=== PATIENT | female | born 1960 | race Caucasian/White ===

== ENCOUNTER 2022-04-24 07:31 | Outpatient (CLI) | payer BC, SELFPAY ==
--- OUTSIDE RECORDS SUMMARY | 2022-04-24 07:34 | XMS_ITS | Clinical Summary ---
:1960 Author Organization [facility] [place] [address] Care Team Providers Name Role Phone Ryann Golden Primary Care Provider Unavailable Allergies No known active allergies Medications Medication Sig Dispensed Refills Start Date End Date Status NAPROXEN SODIUM (ALEVE Take 2 Tabs by 0 Active ORAL) mouth. multivitamin (MVI) Take 1 tablet by 0 Active tablet mouth once daily. predniSONE (DELTASONE) One po QAM as 10 tablet 0 01/28/2020 Active 50 mg tab needed symptoms. tabletIndications: Herpes zoster without complication Active Problems Not on file Encounters Date Type Specialty Care Team Description 03/16/2022 Transcribe Orders Brisa Mcclelland MD from Last 3 Months Social History Tobacco Use Types Packs/Day Years Used Date Never Smoker Smokeless Tobacco: Never Used Sex Assigned at Date Recorded Not on file Obstetrics History Last Filed Vital Signs Vital Sign Reading Time Taken Comments Blood Pressure 116/84 01/28/2020 2:29 PM CDT Pulse 74 01/28/2020 2:29 PM CDT Temperature 36.5 ??C (97.7 ??F) 01/28/2020 2:29 PM CDT Respiratory Rate 16 01/28/2020 2:29 PM CDT Oxygen Saturation 98% 01/28/2020 2:29 PM CDT Inhaled Oxygen Concentration - - Weight 76.1 kg (167 lb 11.2 oz) 01/28/2020 2:29 PM CDT Height - - Body Mass Index - - Plan of Treatment Health Maintenance Due Date Last Done Comments COVID-19 vaccine series (#1) 04/11/1962 Tdap 1972 Depression screening for age 12+ 1973 BMI (ht and wt on same day) for age 18+ 10/10/1979 Hepatitis C screening for age 18-79 10/10/1979 Tetanus booster 1981 Colonoscopy through age 75 2006 Lipids for age 45-75 2006 Mammogram for age 45-75 2006 Zoster (shingles) series for age 50+ (1 of 10/10/2011 2) Pap test for age 21-65 12/06/2021 12/06/2018, 12/06/2018 Influenza for age 50-64 03/30/2022 Results Not on filefrom Last 3 Months Insurance Payer Benefit Plan / Subscriber ID Effective Dates Phone Addre ss Type Group BLUE [employer]OSS BL[employer] OF [id number] 2012-Present [address] [address] [place] [address] [place] (Home) [place] [address] Care Teams Plate Maker Zinc Relationship Specialty Start Date End Date Ryann Golden PCP - General 03/17/22
--- NOTE | 2022-04-24 07:45 | CRLHL7_ITS ---
For Patients: As a result of the Century Cures Act, medical imaging exams and procedure reports are released immediately into your electronic medical record. You may view this report before your referring provider. If you have questions, please contact your health care provider. BILATERAL SCREENING MAMMOGRAM WITH COMPUTER-AIDED DETECTION AND TOMOSYNTHESIS, 04/24/2022 TECHNIQUE: CC and MLO views were obtained. These mammographic images have been obtained using full-field digital technique. These mammographic images were interpreted with the benefit of computer-aided detection. Breast tomosynthesis was used in this interpretation. COMPARISON FILM: Prior 04/19/2021 ultrasound. 04/12/2021, 12/06/2018 screening mammograms, 03/06/2017. FINDINGS: There are scattered areas of fibroglandular density. IMPRESSION: There is no radiographic evidence for malignancy. ASSESSMENT: BI-RADS Category 1: Negative RECOMMENDATION: Routine screening mammogram in 1 year. A lay language report of this examination will be provided to the patient. EMILIANO PHILLIPS M.D. Diagnostic Radiologist [email or web address] Transcribed: 5:[address]/Dictated by: Emiliano Phillips MD @ 04/24/2022 8:48:00 AM (Electronically Signed)
== END 2022-04-24 07:32 | disposition home or self-care (01) ==
PROVIDERS: PCP Family Medicine; Visit Provider Family Medicine
DX: Z12.31 Encounter for screening mammogram for malignant neoplasm of breast (principal)
CPT/HCPCS: 77063; 77067

== ENCOUNTER 2022-05-31 10:39 | Outpatient (CLI) | payer BC, SELFPAY ==
--- OUTSIDE RECORDS SUMMARY | 2022-05-31 10:41 | XMS_ITS | Clinical Summary ---
:1960 Author Organization [facility] [place] [address] Care Team Providers Name Role Phone Ryann [...] Type Group BL[employer]OSS BL[employer] OF [id number] 2012-Present [address] [address] [place] [address] [place] (Home) [place] [address] Relationship Specialty Start Date End Date Ryann Golden PCP - General 03/17/22
[2022-05-31 12:48] LABS: Chloride* 106 mmol/L (96-114); Potassium* 4.3 mmol/L (3.6-5.1); Sodium* 141 mmol/L (135-149)
[2022-05-31 12:51] LABS: Blood Urea Nitrogen* 20 mg/dL (7-30); Carbon Dioxide* 28 mmol/L (20-32); Creatinine* 0.7 mg/dL (0.5-1.5); Estimated Glomerular Filt Rate 99 ml/min; Glucose* 86 mg/dL (60-115)
[2022-05-31 12:52] LABS: Calcium* 9.3 mg/dL (8.4-10.6)
== END 2022-05-31 10:40 | disposition home or self-care (01) ==
LOC: NFLDREF 10:39
PROVIDERS: PCP Family Medicine; Visit Provider Family Medicine
DX: Z01.818 Encounter for other preprocedural examination (principal)
CPT/HCPCS: 80048

== ENCOUNTER 2023-01-08 08:13 | Outpatient (CLI) | payer BC, SELFPAY | END 2023-01-08 08:14 | disposition home or self-care (01) | LOC: NFLDREF 10:56 | PROVIDERS: PCP Family Medicine; Referring Provider Family Medicine; Visit Provider Family Medicine | DX: Z13.1 Encounter for screening for diabetes mellitus (principal); Z13.6 Encounter for screening for cardiovascular disorders | CPT/HCPCS: 80061; 82947 ==

== ENCOUNTER 2023-02-06 07:27 | Outpatient (CLI) | payer BC, SELFPAY ==
--- NOTE | 2023-02-06 07:16 | W.ANESCHARGE ---
Anesthesia Charges Start Date/Time Anesthesia Start Date: 02/06/23 Anesthesia Start Time: 08:27 Stop Date/Time Anesthesia Stop Date: 02/06/23 Anesthesia Stop Time: 09:00
--- NOTE | 2023-02-06 09:01 | W.ANESCHARGE ---
Anesthesia Charges Start Date/Time Anesthesia Start Date: 02/06/23 Anesthesia Start Time: 08:27 Stop Date/Time Anesthesia Stop Date: 02/06/23 Anesthesia Stop Time: 09:00
== END 2023-02-06 07:28 | disposition home or self-care (01) ==
PROVIDERS: PCP Family Medicine; Visit Provider Internal Medicine
DX: Z12.11 Encounter for screening for malignant neoplasm of colon (principal); K63.5 Polyp of colon; K57.30 Diverticulosis of large intestine without perforation or abscess without bleeding
CPT/HCPCS: 00811; 45380; 88305; J2704

== ENCOUNTER 2023-06-14 11:05 | Outpatient (CLI) | payer BC, SELFPAY ==
--- NOTE | 2023-06-14 11:30 | CRLHL7_ITS ---
For Patients: As a result of the Cures Act, medical imaging exams and procedure reports are released immediately into your electronic medical record. You may view this report before your referring provider. If you have questions, please contact your health care provider. BILATERAL SCREENING MAMMOGRAM WITH COMPUTER-AIDED DETECTION AND TOMOSYNTHESIS TECHNIQUE: CC and MLO views were obtained. These mammographic images have been obtained using full-field digital technique. These mammographic images were interpreted with the benefit of computer-aided detection. Breast tomosynthesis was used in this interpretation. COMPARISON FILM: 04/24/22, 04/12/21, 12/06/18. FINDINGS: There are scattered areas of fibroglandular density. IMPRESSION: There is no radiographic evidence for malignancy. ASSESSMENT: BI-RADS Category 1: Negative RECOMMENDATION: Routine screening mammogram in 1 year. A lay language report of this examination will be provided to the patient. EMILIANO PHILLIPS M.D. Diagnostic Radiologist [email or web address] Transcribed: 06/15/2023, 2:[address]/Dictated by: Emiliano Phillips MD @ 06/15/2023 9:43:00 AM (Electronically Signed)
== END 2023-06-14 11:06 | disposition home or self-care (01) ==
LOC: MAMMO 11:06
PROVIDERS: PCP Family Medicine; Visit Provider Family Medicine
DX: Z12.31 Encounter for screening mammogram for malignant neoplasm of breast (principal)
CPT/HCPCS: 77063; 77067

== ENCOUNTER 2024-07-01 14:56 | Outpatient (CLI) | payer BC, SELFPAY ==
--- OUTSIDE RECORDS SUMMARY | 2024-07-01 14:58 | XMS_ITS | Clinical Summary ---
Author Organization [facility] Address [place], [place] [address] Care Team Providers Care Licensed Home Inspector Name Role Phone [facility] Pr ovider Allergies No known active allergies Medications Medication Sig Dispensed Refills Start Date End Date Status NAPROXEN SODIUM (ALEVE ORAL) Take 2 Tabs by mouth. Active multivitamin (MVI) tablet Take 1 tablet by mouth once daily. Active predniSONE (DELTASONE) 50 mg tab tabletIndications:Herp es zoster without complication One po QAM as needed symptoms. 10 tablet 01/28/2020 Active Social History Tobacco Use Types Packs/Day Years Used Date Smoking Tobacco: Never Smokeless Tobacco: Never Sex and Gender Information Value Date Recorded Sex Assigned at Not on file Gender Identity Not on file Sexual Orientation Not on file Obstetrics History Last Filed Vital Signs Vital Sign Reading Time Taken Comments Blood Pressure 155/107 06/19/2022 7:35 PM SPACE AND STORAGE CLERK Pulse 94 06/19/2022 7:35 PM SPACE AND STORAGE CLERK Temperature 37.2 C (98.9 F) 06/19/2022 7:35 PM SPACE AND STORAGE CLERK Respiratory Rate 18 06/19/2022 7:35 PM SPACE AND STORAGE CLERK Oxygen Saturation 98% 06/19/2022 7:35 PM SPACE AND STORAGE CLERK Inhaled Oxygen Concentration - - Weight 82.2 kg (181 lb 3.2 oz) 06/19/2022 7:33 P M SPACE AND STORAGE CLERK Height 162.6 cm (5' 4) 06/19/2022 7:33 PM SPACE AND STORAGE CLERK Body Mass Index 31.1 06/19/2022 7:33 PM SPACE AND STORAGE CLERK Plan of Treatment Health Maintenance Due Date Last Done Comments Tdap 1972 Depression screening for age 12+ 1973 HIV for age 15-65 1976 BMI (ht and wt on same day) for age 18+ 10/10/1979 Hepatitis C screening for ag e 18-79 10/10/1979 Tetanus booster 1981 Colonoscopy through age 75 2006 Lipids for age 45-75 2006 Mammogram for age 45-75 2006 Zoster (shingles) series for age 50+ (1 of 2) 10/10/2011 Pap test for age 21-65 12/06/2021 9, 12/06/2018 COVID-19 vaccine series (2023- season) 2024 06/08/2021, 11/10/2020, 10/13/2020 Influenza for age 50-64 03/30/2024 Pneumococcal series for age 6-64 Aged Out No longer eligible b ased on patient's age to complete this topic Procedures Procedure Name Priority Date/Time Associated Diagnosis Comments HEAD USHER THIN PREP PAP SCREEN IMAGED Routine 12/06/2018 12:00 PM CDT from Last 3 Months or Most Recently Relevant to Health Maintenance Results * HEAD USHER THIN PREP PAP SCREEN IMAGED (12/06/2018 12:00 PM CDT) Case Report Gynecologic Cytology Report Case: [id number] Authorizing Provider: Kelsey Bradley MD Collected: 12/06/2018 1200 Ordering Location: [facility] Received: 12/09/2018 0854 First Screen: Natanael Benton Specimen: HEAD USHER ThinPrep Vial Screening, Cervical/Vaginal 12/17/2018 11:47 AM CDT [facility] INTERPRETATION/ RESULT NEGATIVE FOR INTRAEPITHELIAL LESION OR MALIGNANCY (NIL) (none) 12/17/2018 11:47 AM CDT [facility] IMEN ADEQUACY Satisfactory for evaluation Endocervical cells cannot be evaluated due to severe atrophy Scant cellularity 12/17/2018 11:47 AM CDT [facility] HPV REQUEST HPV and PAP 12/17/2018 11:47 AM CDT [facility] Automated Review Successful 12/17/2018 11:47 AM CDT [facility] Comment:Specimen processed s uccessfully by automated agriculture science teacher device, ThinPrep Imaging System, [employer] ANCILLARY TESTING HEAD USHER HPV Ordered, Please see separate report 12/17/2018 11:47 AM CDT [facility] Note The pap test is a screening technique, not a diagnostic procedure. It is used primarily to screen for squamous cancers and precursor lesions. Published studies have shown that it is subject to both false negative and false positive results. The pap test should not be used as the sole means to diagnose or exclude pre-malignant and malignant lesions. Cytology is screened and interpreted at [facility] - [address], [place] [address] and [facility] - [address]; [place] [address] and [facility] - [address]; [place] [address] and [facility] [address]; [place] [address] 12/17/2018 11:47 AM CDT [facility] Other (Cervical/Vagina l) 12/06/2018 12:00 PM CDT 12/09/2018 8:54 AM CDT Kelsey Bradley MD PATHOLOGY/CYTOLOG Y [facility] [address] [place] [address], from Last 3 Months or Most Recently Relevant to Health Maintenance Care Teams Licensed Home Inspector Relationship Specialty Start Date End Date Clinic, [facility] [address] [place] [address] PCP - General 03/10/24
--- NOTE | 2024-07-01 15:00 | CRLHL7_ITS ---
For Patients: As a result of the Century Cures Act, medical imaging exams and procedure reports are released immediately into your electronic medical record. You may view this report before your referring provider. If you have questions, please contact your health care provider. BILATERAL SCREENING MAMMOGRAM WITH COMPUTER-AIDED DETECTION AND TOMOSYNTHESIS TECHNIQUE: CC and MLO views were obtained. These mammographic images have been obtained using full-field digital technique. These mammographic images were interpreted with the benefit of computer-aided detection. Breast Tomosynthesis was used in this interpretation. COMPARISON FILM: 06/14/23, 04/24/22, 04/12/21. FINDINGS: There are scattered areas of fibroglandular density. IMPRESSION: There is no radiographic evidence for malignancy. ASSESSMENT: BI-RADS Category 1: Negative RECOMMENDATION: Routine screening mammogram in 1 year. A lay language report of this examination will be provided to the patient. Emiliano Bernstein M.D. Diagnostic Radiologist [email or web address] SP/Dictated by: Emiliano Bernstein MD @ 07/02/2024 12:11:00 PM (Electronically Signed)
== END 2024-07-01 14:57 | disposition home or self-care (01) ==
PROVIDERS: PCP Family Medicine; Visit Provider Family Medicine
DX: Z12.31 Encounter for screening mammogram for malignant neoplasm of breast (principal)
CPT/HCPCS: 77063; 77067